=== PATIENT | male | born 1985 | race Caucasian/White ===

== ENCOUNTER 2016-07-31 00:08 | Inpatient (IN) | payer OTHER ==
--- NOTE | ~2016-07-31 | HP ---
Unit #: [id number] #: [id number] Patient: ROQUE VALENZUELA [id number] [place] [address] [id number] MR#: [id number] NAME: ROQUE VALENZUELA. ROOM: P185 Age: 31 Sex: M Admission Date: 07/31/2016 : 1985 Attending Physician: Tk Gomez M.D. Admitting Physician: Tk Gomez M.D. Primary Care Physician: Primary Care Physician No HISTORY AND PHYSICAL HISTORY OF PRESENT ILLNESS Roque is a 31 year old admitted to [facility] because of his drug use. He shoots heroin. PAST MEDICAL HISTORY 1. Long history of polysubstance abuse to include IV heroin 2. Hepatitis C. PAST SURGICAL HISTORY Nothing reported. ALLERGIES No known drug allergies. SOCIAL HISTORY He smokes one pack per day, drinks alcohol rarely, admits to a long history of opioid abuse to include IV heroin. FAMILY HISTORY Medically noncontributory. REVIEW OF SYSTEMS CONSTITUTIONAL: No fever or chills. HEENT: Denies any sore throat, ear pain or runny nose. CARDIOVASCULAR: Denies chest pain, irregular heart rhythm or palpitations. CHEST: Denies shortness of breath or cough. No hemoptysis. GASTROINTESTINAL: Denies nausea, vomiting, diarrhea or chronic constipation. ENDOCRINE: Denies history of increased thirst or urination. No recent significant weight loss or gain. GENITOURINARY: Denies dysuria, frequency, or hematuria. SKIN: Denies any rashes. HEMATOLOGIC: Denies history of increased bleeding or bruising. MUSCULOSKELETAL: Denies any hot, swollen joints. No generalized muscle pain. NEUROLOGIC: Denies problems with vision or speech. No frequent, severe headaches. No numbness, tingling or weakness in any extremities. Denies loss of bladder or bowel control. CURRENT MEDICATIONS Detox protocol Unit #: [id number] #: [id number] Patient: ROQUE VALENZUELA PHYSICAL EXAMINATION GENERAL: Alert, well-nourished, in no apparent distress. VITAL SIGNS: Blood pressure 110/64, heart rate 80, respirations 16, temperature 98.6. WEIGHT: 160 pounds. HEIGHT: 5'6". SKIN: Warm and dry without rash or lesion. HEENT: Normocephalic. TMs not viewed. Oral and nasal passages clear. Conjunctivae clear. Pupils equal, round and reactive to light and accommodation. Extraocular movements intact. NECK: Supple without lymphadenopathy or thyromegaly. HEART: Regular rate and rhythm without murmur. LUNGS: Clear. ABDOMEN: Soft, nontender. : Not done. EXTREMITIES: No evidence of cyanosis, clubbing or edema. Moves all extremities without focal deficit. NEUROLOGICAL: Grossly within normal limits. Cranial Nerves: II: Visual liz are intact. III, IV AND : Extraocular movements are intact. Pupils are equal, round and reactive to light. V: Facial sensation is grossly normal. VII: Facial movements and expression are normal. VIII: Auditory acuity grossly intact. IX, X: Uvula is midline. Phonation is normal. XI: Patient shrugs shoulders and turns head normally. XII: Tongue protrudes in the midline. Sensory and Motor Function: Sensory and motor sensation is grossly normal. Motor: moves all extremities well. Coordination: Gait is normal. Deep Tendon Reflexes: Intact. IMPRESSION Psychiatric admission RECOMMENDATIONS PSYCHIATRIC: Per psychiatrist. MEDICAL: I see no contraindications to participating in facility's activities. MEDICAL PROGNOSIS Good. MEDICAL CONDITION Stable. Dictated by... Paige Olson P.A.-C. for Teri Oneal/ladonna TD: 07/31/2016 21:05 JOB #: [id number] Unit #: [id number] #: [id number] Patient: ROQUE VALENZUELA HISTORY AND PHYSICAL X Paige Olson HISTORY AND PHYSICAL
--- NOTE | ~2016-07-31 | PA ---
Unit #: [id number] #: [id number] Patient: ROQUE VALENZUELA [id number] [place] [address] [id number] I MR#: [id number] NAME: ROQUE VALENZUELA. ROOM: P185 Age: 31 Sex: M Admission Date: 07/31/2016 : 1985 Date of Assessment: 07/31/2016 Attending Physician: Tk Gomez M.D. Admitting Physician: Tk Gomez M.D. Primary Care Physician: Primary Care Physician No PSYCHIATRIC ASSESSMENT IDENTIFYING INFORMATION The patient is a 31-year-old white male with a history of methamphetamine and heroin abuse admitted for detox. INFORMANT(S) Chart, the patient cannot be aroused for interview. CHIEF COMPLAINT None given. HISTORY OF PRESENT ILLNESS The patient is a 31-year-old white male admitted with a history of methamphetamine and heroin abuse. The patient reports that he is using 1 gram of heroin and 1 gram of meth daily intravenously. He last used on the day of admission. The patient reports that he is presently unemployed and homeless. He suffers from hepatitis C. On admission, the patient denied suicidal or homicidal ideation or any psychotic symptoms. PAST PSYCHIATRIC HISTORY As above. FAMILY HISTORY Noncontributory. SOCIAL HISTORY As noted previously, patient is currently homeless. He completed the 11th grade. He reports substance use as noted previously. MEDICAL HISTORY Significant for a history of hepatitis C. MEDICATION HISTORY None. ALLERGIES None. MENTAL STATUS EXAM At this time, reveals the patient to be a soundly sleeping white male who cannot be aroused for further interview. ASSETS AND LIABILITIES Patient's assets, motivation for change. Liabilities, lack of resources, Unit #: [id number] #: [id number] Patient: ROQUE VALENZUELA homelessness. ADMITTING DIAGNOSES 1. Methamphetamine use disorder. 2. Opioid use disorder. 3. Hepatitis C. PSYCHIATRIC PLAN/TREATMENT GOALS The patient remains hospitalized for safety and stabilization. Routine detoxification protocol has been initiated. The patient will participate in appropriate carmona and milieu activities. ESTIMATED LENGTH OF STAY Three to five days. Dictated by... Tk Gomez M.D. MASHA/lázaro TD: 07/31/2016 16:25 JOB #: [id number] PSYCHIATRIC ASSESSMENT X Tk Gomez MD PSYCHIATRIC ASSESSMENT
--- NOTE | ~2016-07-31 | DS ---
Unit #: [id number] #: [id number] Patient: ROQUE VALENZUELA [id number] [facility] [address] [place] [address] [id number] I MR#: [id number] NAME: ROQUE VALENZUELA ROOM: 85 Age: 31 Sex: M Admission Date: 07/31/2016 : 1985 Discharge Date: 08/03/2016 Attending Physician: Tk Gomez M.D. Primary Care Physician: Primary Care Physician No DISCHARGE SUMMARY REASON FOR ADMISSION The patient is a 31-year-old white male, admitted to the [facility] unit with history of intravenous heroin use. HOSPITAL COURSE The patient was admitted to the [facility] unit and placed on suicide precautions. Laboratory testing indicated a negative RPR and HIV, but the patient's liver functions were slightly elevated leading to concerns about the possibility of hepatitis C. The patient is instructed to contact this facility regarding results of hepatitis testing at the time of discharge. On 08/03/2016, the patient requested discharge from this facility stating a wish to go to "[facility] Discharge was ordered. FINAL DIAGNOSES Opioid use disorder. DISPOSITION ON DISCHARGE The patient is discharged on no psychotropic or other medications. FOLLOWUP Followup will take place through the auspices of "[facility]." PROGNOSIS His prognosis is considered fair. Dictated by... Tk Gomez M.D. CB/juan TD: 08/04/2016 01:59 JOB #: [id number] DISCHARGE SUMMARY X Tk Gomez MD X DISCHARGE SUMMARY
--- NOTE | ~2016-07-31 | PN ---
Unit #: [id number] #: [id number] Patient: ROQUE VALENZUELA [id number] [facility] [address] [place] [address] [id number] Michael MR#: [id number] NAME: ROQUE VALENZUELA ROOM: P185 Age: 31 Sex: M Admission Date: 07/31/2016 : 1985 Attending Physician: Tk Gomez M.D. Admitting Physician: Tk Gomez M.D. Primary Care Physician: Primary Care Physician Rupa NGUYEN NOTES DATE 08/01/2016 DISCUSSION The patient continues to complain of significant physical and GI distress related to opiate withdrawal but is otherwise pleasant and cooperative. I have encouraged him to increase his participation within the therapeutic milieu once able to do. Dictated by... Tk Gomez M.D. CB/lázaro TD: 08/01/2016 15:25 JOB #: [id number] TASNEEM NGUYEN NOTES X Tk Gomez MD PROGRESS NOTE
--- NOTE | ~2016-07-31 | CO ---
Unit #: [id number] #: [id number] Patient: ROQUE VALENZUELA [id number] [place] [address] [id number] I MR#: [id number] NAME: ROQUE VALENZUELA. ROOM: P185 Age: 31 Sex: M Admission Date: 07/31/2016 : 1985 Attending Physician: Tk Gomez M.D. CONSULTATION REPORT HISTORY OF PRESENT ILLNESS Roque reports that 2 days ago he noticed redness and pain in his right eye. The pain continued yesterday and consult was ordered; however, this morning he woke up and his eye was much better. He is not having any redness, no pain. He does not have any changes in his vision, no swelling and he was not treated with anything. The symptoms resolved on their own. He has no complaints. PHYSICAL EXAMINATION CARDIAC: Regular rate and rhythm. No murmur, gallop, or rub. RESPIRATORY: Clear to auscultation bilaterally. HEENT: Eyes are PERRLA. No redness. ASSESSMENT AND PLAN Right eye pain and redness. The patient reports that symptoms have resolved without treatment and he was instructed to notify if symptoms return and we will re-evaluate. Dictated by... Vickie Ma A.P.R.N. for Teri Oneal/juan TD: 08/02/2016 17:41 JOB #: [id number] CONSULTATION REPORT X VICKIE BOCANEGRA APRN X CONSULTATION REPORT
[2016-07-31 12:31] LABS: BASOPHIL% 0.3 % (0-2.5); EOSINOPHIL# 0.3 X10e3 (0-0.7); EOSINOPHIL% 3.3 % (0.0-7.0); HEMATOCRIT 40.8 % (38.0-50.0); HEMOGLOBIN 13.3 gm/dL (13.0-16.0); LYMPHOCYTE% 20.8 % (17.0-45.0); MEAN CELL VOLUME 94.8 FL (83-96); MEAN CORPUSCULAR HEMOGLOBIN 30.9 PG (28-34); MEAN CORPUSCULAR HGB CONC 32.6 g/dL (30-36); MEAN PLATELET VOLUME 7.4 FL (6.5-11.5); MONOCYTE# 0.8 X10e3 (0-1.0); MONOCYTE% 8.8 % (3.0-12.0); NEUTROPHIL# 6.5 X10e3 (1.5-7.1); NEUTROPHIL% 66.8 % (40-75); PLATELET COUNT 325 X10e3 (140-420); RED BLOOD COUNT 4.31 X10e (3.90-5.60); RED CELL DISTRIBUTION WIDTH 14.3 % (11.0-15.5); WHITE BLOOD COUNT 9.7 X10e3 (4.0-10.5)
[2016-07-31 12:37] LABS: DIFF IND NO
[2016-07-31 12:43] LABS: ALBUMIN SERUM 3.5 g/dL (3.5-5.0); ALKALINE PHOSPHATASE 67 U/L (32-92); ALT (SGPT) 63 U/L (10-40); AST (SGOT) 69 U/L (10-42); BILIRUBIN,TOTAL 0.5 mg/dL (0.2-2.0); BLOOD UREA NITROGEN 19 mg/dL (9-23); BUN/CREATININE RATIO 23.75; CALCIUM SERUM 8.6 mg/dL (8.4-10.2); CARBON DIOXIDE 25 mmol/L (22-31); CHLORIDE 104 mmol/L (100-111); CREATININE SERUM 0.8 mg/dL (0.6-1.4); GLOM FILT RATE Estimated ABOVE60 mL/min (>60); GLUCOSE FASTING 73 mg/dL (70-110); POTASSIUM 3.7 mmol/L (3.5-5.1); PROTEIN TOTAL SERUM 6.2 g/dL (6.0-8.3); SODIUM 139 mmol/L (135-145)
[2016-07-31 13:31] LABS: THYROID STIMULATING HORMONE 0.28 uIU/ml (0.34-5.60)
[2016-07-31 13:40] LABS: FREE THYROXIN (T4) 0.86 ng/dL (0.58-1.64)
[2016-08-05 11:38] LABS: HA AB IGM (HEPPAN) Nonreactive (Nonreactive); HB CORE AB IGM (HEPPAN) Nonreactive (Nonreactive); HB S AG (HEPPAN) Nonreactive (Nonreactive); HEP C AB (HEPPAN) Reactive (Nonreactive)
== END 2016-08-03 14:45 | disposition home or self-care (01) | DRG 897 ==
LOC: P1E 00:08
PROVIDERS: Specialist
PROC: HZ2ZZZZ Detoxification Services for Substance Abuse Treatment (ICD-10-PCS; principal; 2016-07-31)
DX: F15.10 Other stimulant abuse, uncomplicated (principal); F11.10 Opioid abuse, uncomplicated; B19.20 Unspecified viral hepatitis C without hepatic coma; F17.200 Nicotine dependence, unspecified, uncomplicated; Z56.0 Unemployment, unspecified; Z59.0 Homelessness; H57.11 Ocular pain, right eye
CPT/HCPCS: 80053; 80074; 84439; 84443; 85025; 86592; 87522; 87806